=== PATIENT | male | born 1990 | race Caucasian/White ===

== ENCOUNTER 2018-10-19 12:09 | Emergency (ER) | payer MEDICAID ==
[2018-10-19 12:15] VITALS: BP 126/85
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
[2018-10-19 13:03] LABS: CHLORIDE,CL 104 mmol/L (98-107); SODIUM,NA 141 mmol/L (136-145)
[2018-10-19 13:15] LABS: ACETAMINOPHEN 0 ug/ml (10-30); ANION GAP 16.1 mmol/L (10-20)
== END 2018-10-19 13:26 ==
LOC: VM.ED 12:09
DX: S60.812A Abrasion of left wrist, initial encounter (principal); S60.811A Abrasion of right wrist, initial encounter; Z88.2 Allergy status to sulfonamides; Y29.XXXA Contact with blunt object, undetermined intent, initial encounter
CPT/HCPCS: 36415; 80053; 80305-QW; 81001; 83735; 84100; 85025; 85610; 99283; G0480

== ENCOUNTER 2018-11-20 21:15 | Emergency (ER) | payer SELFPAY ==
[2018-11-20 21:28] VITALS: BP 124/79
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
[2018-11-20] MEDS ORDERED: Ketorolac 60 MG/2 ML SDV IM ONE (22:22)
--- NOTE | 2018-11-21 09:09 | CT ---
[id number] CT/CT Head WO IV EXAM: CT Head WO IV CLINICAL DATA: HEADACHE COMPARISON: CORRELATION IS MADE WITH THE EXAM OF MAY 08, 2016. FINDINGS: Chronic appearing paranasal sinus inflammatory changes are seen. There appears to been previous bilateral sinus surgery. There is no mass or mass effect. There is no hemorrhage or hydrocephalus. There are no extra-axial fluid collections. There are no sites of abnormal attenuation. IMPRESSION: NO PLAIN CT EVIDENCE OF ACUTE INTRACRANIAL PROCESS. Christofer Louie MD 11/21/18 0906 Thank you for allowing us to participate in the care of your patient.
== END 2018-11-20 22:41 | disposition home or self-care (01) ==
LOC: VM.ED 21:15
DX: J32.9 Chronic sinusitis, unspecified (principal); Z88.2 Allergy status to sulfonamides
CPT/HCPCS: 70450; 96372; 99283-GF; 99284-25; J1885